=== PATIENT | male | born 1955 | race Caucasian/White ===

== ENCOUNTER 2018-02-15 12:30 | Day surgery (SDC) | payer BC, MEDICARE ==
[~2018-02-15 12:30] MED LIST: ACETAMINOPHEN 1,000 MG/100 ML BTL IV ONE; CEFAZOLIN 2 Gram 2 GM/50 ML BAG IVPB ONE
[2018-02-15] MEDS ORDERED: ONDANSETRON HCL IV 4 MG/2 ML VIAL IVP ONE (12:31)
[2018-02-15] MEDS ORDERED: EPHEDRINE SULFATE 50 MG/ML ML IV ONE (12:31)
[2018-02-15] MEDS ORDERED: LIDOCAINE 2% MDV (20MG/ML) 20ML VIAL IV ONE (12:31)
[2018-02-15] MEDS ORDERED: BUPIVACAINE 0.5% W/EPI MPF 30 ML VIAL IVP ONE (12:31)
[2018-02-15] MEDS ORDERED: HYDROMORPHONE HCL 2 MG/ML VIAL IV ONE (12:31)
[2018-02-15] MEDS ORDERED: PROPOFOL 10 MG/ML VIAL IV ONE (12:31)
--- NOTE | 2018-02-16 21:23 | Operative Note ---
DATE OF SURGERY: 02/15/2018 PREOPERATIVE DIAGNOSIS: CUBITAL TUNNEL SYNDROME ON THE RIGHT. POSTOPERATIVE DIAGNOSIS: CUBITAL TUNNEL SYNDROME ON THE RIGHT. PROCEDURE: RIGHT CUBITAL TUNNEL RELEASE. STAFF SURGEON: BRIAN POLLACK MD ANESTHESIA: GENERAL. PREPARATION: CHLORAPREP. INDIVIDUAL CONSIDERATIONS: NONE. PROCEDURE: The patient was taken to the Operating Room and placed supine on the operating table. His had a successful induction with general anesthetic. His right upper extremity was prepped and draped in the usual fashion. The patient's limb was elevated and the tourniquet was inflated to 250 mmHg. The patient had an incision over the ulnar nerve over the cubital tunnel. Sharp dissection carried down through the skin and subcutaneous tissue. Small veins were coagulated with a Bovie. I could palpate the nerve and then I made a very dru over the cubital tunnel and entered it into the perineural fat. I released it proximally carefully with scissors up into the arm and then distally as it disappeared into the flexor pronator group and started to branch. The nerve was otherwise supple and mobile and intact, although it looked reddened. The tourniquet was let down and hemostasis was obtained with a Bovie. The subcu was then closed with running 2-0 Plus Vicryl, the skin was closed with asia. I then infiltrated the skin with 0.5% Marcaine with Epinephrine and a sterile Bulkee compressive dressing and sling were applied. The patient tolerated the procedures well. Needle and sponge counts were correct. Estimated blood loss was minimal and he was taken back to Recovery in good condition. There were no complications. JOB NUMBER: [id number] MTDD
== END 2018-02-15 16:35 | disposition home or self-care (01) ==
LOC: SUR 12:30
PROVIDERS: ATTEND Orthopaedic Surgery
DX: G56.21 Lesion of ulnar nerve, right upper limb (principal); I10 Essential (primary) hypertension; E78.00 Pure hypercholesterolemia, unspecified; M10.9 Gout, unspecified; K21.9 Gastro-esophageal reflux disease without esophagitis
CPT/HCPCS: 64718; 01710; J2405; J1170; J0690

== ENCOUNTER 2018-03-01 10:41 | Day surgery (SDC) | payer MEDICARE ==
[2018-03-01] MEDS ORDERED: LIDOCAINE 2% MDV (20MG/ML) 20ML VIAL IV ONE (10:42)
[2018-03-01] MEDS ORDERED: BUPIVACAINE 0.5% W/EPI MPF 30 ML VIAL IVP ONE (10:42)
[2018-03-01] MEDS ORDERED: SEVOFLURANE 250 ML INH ONE (10:42)
[2018-03-01] MEDS ORDERED: PROPOFOL 10 MG/ML VIAL IV ONE (10:42)
--- NOTE | 2018-03-02 20:33 | Operative Note ---
DATE OF SURGERY: 03/01/2018 PREOPERATIVE DIAGNOSIS: LEFT CUBITAL TUNNEL SYNDROME. POSTOPERATIVE DIAGNOSIS: LEFT CUBITAL TUNNEL SYNDROME. PROCEDURE: LEFT CUBITAL TUNNEL RELEASE. STAFF SURGEON: BRIAN POLLACK M.D. ANESTHESIA: GENERAL. PREPARATION: CHLORAPREP. INDIVIDUAL CONSIDERATIONS: NONE. PROCEDURE: The patient was taken to the Operating Room and placed supine on the operating table. He had successful induction of a general anesthetic. His left upper extremity was prepped and draped in the usual fashion. The limb was elevated. The tourniquet was inflated to 250 mmHg. The patient had an incision marked along the course of the ulnar nerve in the cubital tunnel, which was palpable. The skin was infiltrated with 0.5% Marcaine with Epinephrine prior. The limb was then elevated. The tourniquet was inflated to 250 mmHg. The patient had an incision along the course of the cubital tunnel. Sharp dissection was carried down through the skin. Careful sharp dissection carried down through the subcutaneous and then directly over the sheath as I could feel it. I make a dru and then released the nerve proximally and distally , proximally in the arm, and then distally as it branched into the forearm with scissors. Once it was released, the nerve basically almost expanded before my eyes. It was highly contused. It was now free. The tourniquet was let down. Hemostasis was obtained with a Bovie after irrigation. The subcutaneous was closed with 2-0+ Vicryl, the skin was closed with asia, and a sterile dressing and sling were applied. The patient tolerated the procedure well. Needle and sponge counts were correct. Estimated blood loss was minimal and he was taken back to Recovery in good condition. There were no complications. JOB NUMBER: [id number] [facility]
== END 2018-03-01 15:05 | disposition home or self-care (01) ==
LOC: SUR 10:41
PROVIDERS: ATTEND Orthopaedic Surgery
DX: G56.22 Lesion of ulnar nerve, left upper limb (principal); I10 Essential (primary) hypertension; E78.00 Pure hypercholesterolemia, unspecified; M10.9 Gout, unspecified; K21.9 Gastro-esophageal reflux disease without esophagitis
CPT/HCPCS: 64718; 01710; J0690